=== PATIENT | female | born 1970 | race Caucasian/White ===

== ENCOUNTER → 2017-04-08 | Outpatient (CLI) | payer OTHER ==
[~2017-04-08] MED LIST: PREN1TAB39 PO; tylenol with codeine PO
--- NOTE | 2017-04-08 16:34 | Diagnostic Imaging Report ---
PROCEDURE: MRI right joint upper extremity without contrast. TECHNIQUE: Multiplanar, multisequence non contrast-enhanced MRI of the right upper extremity was accomplished. INDICATION: Pain along the posterior aspect of the right elbow joint. FINDINGS: There is prominent bone marrow edema along the lateral epicondyle and adjacent region of the capitellum noted. There is significant increased signal and swelling seen within the extensor tendon origin. This is a high-grade injury with the affected fibers involving most of the tendon origin of the common extensor tendons. There is no significant retraction however. The medial epicondyle and the common flexor tendon is normal. The radial collateral ligament is not well delineated proximity and is probably torn at the humerus attachment. The medial collateral ligament appears normal. The joint alignment is satisfactory. The triceps tendon, the brachialis and the biceps tendons are all normal. The ulnar nerve passing posterior to the medial epicondyle appears normal. IMPRESSION: 1. Findings compatible with a high-grade partial tear of the origin of the common extensor tendon at the lateral epicondyle with adjacent reactive marrow edema or contusion around the medial epicondyle. 2. The proximal attachment of the lateral collateral ligament is poorly defined and is probably torn. Report was faxed to the office of Dr. Too Kauffman at 4:30 p.m., by ranjeet (for LAURA). Dictated by: Dictated on workstation # [id number]
== END ==
LOC: RAD 13:15
PROVIDERS: ATTEND Orthopaedic Surgery
DX: S56.511A Strain of other extensor muscle, fascia and tendon at forearm level, right arm, initial encounter (principal); X58.XXXA Exposure to other specified factors, initial encounter; Y99.8 Other external cause status
CPT/HCPCS: 73221

== ENCOUNTER → 2017-07-09 | Outpatient (CLI) | payer OTHER ==
--- NOTE | 2017-07-10 10:09 | Diagnostic Imaging Report ---
EXAMINATION: Bilateral screening mammogram 2D views with tomosynthesis. The current study was also evaluated with a Computer Aided Detection (CAD) system. INDICATION: Screening. PERSONAL HISTORY: No current complaints stated on the questionnaire. COMPARISON: 07/03/2016. FINDINGS: The breasts are composed of heterogeneously dense parenchyma which may decrease mammographic sensitivity. There are benign-appearing calcifications. Allowing for technique and positional differences, no suspicious change is seen. IMPRESSION: Dense breasts with no definite change. ACR BI-RADS Category 2: Benign findings. Result letter will be mailed to the patient. Note: At least 10% of breast cancer is not imaged by mammography. Dictated by: Dictated on workstation # [id number]
== END ==
LOC: RAD 15:36
PROVIDERS: ATTEND Obstetrics & Gynecology
DX: Z12.31 Encounter for screening mammogram for malignant neoplasm of breast (principal)
CPT/HCPCS: 77067

== ENCOUNTER 2017-08-26 08:04 | Outpatient (RCR) | payer OTHER | END 2017-08-26 09:10 | disposition home or self-care (01) | PROVIDERS: ATTEND Nurse Practitioner Family | DX: S82.401A Unspecified fracture of shaft of right fibula, initial encounter for closed fracture (principal); X50.9XXA Other and unspecified overexertion or strenuous movements or postures, initial encounter; Y92.015 Private garage of single-family (private) house as the place of occurrence of the external cause ==

== ENCOUNTER → 2017-10-16 | Outpatient (CLI) | payer OTHER | LOC: CARD 12:30 | PROVIDERS: ATTEND Nurse Practitioner Family | DX: I10 Essential (primary) hypertension (principal); R60.0 Localized edema; R53.83 Other fatigue | CPT/HCPCS: 93306 ==

== ENCOUNTER → 2017-11-17 | Outpatient (CLI) | payer OTHER ==
[~2017-11-17] VITALS: Ht 154.9 cm; Wt 72.1 kg
[~2017-11-17] MED LIST changes: +CATHETER FLUSH 10 ML SYR IV PRN
[2017-11-17 08:56] VITALS: BP 139/87
--- NOTE | 2017-11-17 18:17 | STRESS TEST ---
DATE OF SERVICE: 11/17/2017 PROCEDURE PERFORMED: Resting and post-exercise technetium-99m Tetrofosmin SPECT CT imaging. ORDERING PHYSICIAN: Yandy Ortega MD, MA, FACP, FACC. PRIMARY PHYSICIAN: Jenifer Castañeda DO. OTHER PHYSICIAN: SOLEDAD Castro. CLINICAL DIAGNOSES: Shortness of breath, hypertension. DESCRIPTION OF PROCEDURE: Baseline images were carried out after injection of 10.18 mCi of technetium-99m Tetrofosmin. This was followed by exercise on a treadmill. Tu protocol was employed. Heart rate response to exercise was normal. Blood pressure response to exercise was somewhat hypertensive. At peak exercise, there appears to be considerable baseline artifact, but there does not appear to be significant ST segment depression. No ventricular or supraventricular tachycardia was seen. Exercise was stopped on account of fatigue. She exercised for a total of 9 minutes and 30 seconds in the Tu protocol. She attained 99% of maximum predicted heart rate. After she had attained more than 85% of maximum predicted heart rate, 30 mCi of technetium-99m Tetrofosmin were injected and the exercise was continued for another minute. Review of images at rest and following stress does not indicate any significant perfusion defects consistent with significant myocardial ischemia or infarction. Gated images show normal global left ventricular systolic function with normal regional wall motion. Left ventricular ejection fraction is calculated to be 72%. Left ventricular end diastolic volume is 47 mL. TID is absent (1.04). CONCLUSIONS: 1. No evidence of any significant myocardial ischemia or infarction on this study. 2. Normal regional wall motion. 3. Normal global left ventricular systolic function with a calculated ejection fraction of 72%. 4. Normal left ventricular cavity size. Job ID: [id number] DocumentID: [id number] Dictated Date: 11/17/2017 16:07:50 Refrigeration Installer Date: 11/17/2017 18:17:08 Dictated By: YANDY ORTEGA MD, ANTOINE, FACP, FACC,
== END ==
LOC: CARD 07:10
PROVIDERS: ATTEND Internal Medicine Cardiovascular Disease
DX: I10 Essential (primary) hypertension (principal); M79.89 Other specified soft tissue disorders; R06.02 Shortness of breath; E66.8 Other obesity
CPT/HCPCS: 78452; 93017

== ENCOUNTER → 2018-07-12 | Outpatient (CLI) | payer OTHER ==
[~2018-07-12] MED LIST changes: -CATHETER FLUSH 10 ML SYR IV PRN
--- NOTE | 2018-07-12 13:08 | Diagnostic Imaging Report ---
INDICATION: Routine screening. COMPARISON: 07/09/2017 and 07/03/2016. TECHNIQUE: 2D and 3D bilateral screening mammography was performed with CAD. FINDINGS: Both breasts remain heterogeneously dense, limiting the sensitivity of mammography. The parenchymal pattern appears stable. No dominant mass or malignant appearing microcalcifications are seen. The axillae are unremarkable. IMPRESSION: No mammographic features suspicious for malignancy are identified. ACR BI-RADS Category 1: Negative. Result letter will be mailed to the patient. Note: At least 10% of breast cancer is not imaged by mammography. Dictated by: Dictated on workstation # [id number]
== END ==
LOC: RAD 07:34
PROVIDERS: ATTEND Obstetrics & Gynecology
DX: Z12.31 Encounter for screening mammogram for malignant neoplasm of breast (principal)
CPT/HCPCS: 77067

== ENCOUNTER → 2019-08-02 | Outpatient (CLI) | payer OTHER ==
--- NOTE | 2019-08-02 12:37 | Diagnostic Imaging Report ---
INDICATION: Routine screening. COMPARISON: Comparison is made with prior mammograms from 07/12/2018 and 07/09/2017. 2-D and 3-D bilateral screening mammography was performed. The current study was also evaluated with a Computer Aided Detection (CAD) system. 3-D tomosynthesis was also performed and reviewed. FINDINGS: Both breasts are heterogeneously dense, limiting the sensitivity of mammography. No mass or malignant-appearing microcalcifications are seen. Axillae are unremarkable. IMPRESSION: No mammographic features suspicious for malignancy are identified. ACR BI-RADS Category 1: Negative. Result letter will be mailed to the patient. Note: At least 10% of breast cancer is not imaged by mammography. Dictated by: Dictated on workstation # [id number]
== END ==
LOC: RAD 07:31
PROVIDERS: ATTEND Obstetrics & Gynecology
DX: Z12.31 Encounter for screening mammogram for malignant neoplasm of breast (principal)
CPT/HCPCS: 77067

== ENCOUNTER → 2020-08-03 | Outpatient (CLI) | payer OTHER ==
--- NOTE | 2020-08-03 10:47 | Diagnostic Imaging Report ---
INDICATION: Routine screening. COMPARISON is made with prior mammograms of 08/02/2019 and 07/12/2018. 2-D and 3-D bilateral screening mammography was performed with CAD. Both breasts are heterogeneously dense, limiting the sensitivity of mammography. No mass or malignant appearing microcalcifications are identified. Axillae are unremarkable. IMPRESSION: BI-RADS Category 1 No mammographic features suspicious for malignancy are identified. ACR BI-RADS Category 1: Negative. Result letter will be mailed to the patient. Note: At least 10% of breast cancer is not imaged by mammography. Dictated by: Dictated on workstation # [id number]
== END ==
LOC: RAD 07:45
PROVIDERS: ATTEND Obstetrics & Gynecology
DX: Z12.31 Encounter for screening mammogram for malignant neoplasm of breast (principal)
CPT/HCPCS: 77063; 77067

== ENCOUNTER → 2021-08-13 | Outpatient (CLI) | payer OTHER ==
--- NOTE | 2021-08-13 12:31 | Diagnostic Imaging Report ---
INDICATION: Routine screening. COMPARISON: 08/03/2020 and 08/02/2019. TECHNIQUE: 2D and 3D bilateral screening mammography was performed with CAD. FINDINGS: Both breasts are heterogeneously dense, limiting the sensitivity of mammography. No mass or malignant-appearing microcalcifications are seen. The axillae are unremarkable. IMPRESSION: No mammographic features suspicious for malignancy are identified. ACR BI-RADS Category 1: Negative. Result letter will be mailed to the patient. Note: At least 10% of breast cancer is not imaged by mammography. Dictated by: Dictated on workstation # [id number]
== END ==
LOC: RAD 07:30
PROVIDERS: ATTEND Obstetrics & Gynecology
DX: Z12.31 Encounter for screening mammogram for malignant neoplasm of breast (principal)
CPT/HCPCS: 77063; 77067